=== PATIENT | female | born 1995 | race American Indian/Alaskan Native ===

== ENCOUNTER 2017-07-21 08:50 | Emergency (ER) | payer OTHER ==
[2017-07-21 09:29] LABS: Basophils % (Auto) 0.6 % (0.0-1.8); Hematocrit 34.7 % (30.3-42.9); Hemoglobin 11.2 gm/dl (10.1-14.3); Mean Corpuscular HGB Conc 32 % (30-34); Mean Corpuscular Hemoglobin 26 pg (28-32); Mean Corpuscular Volume 80 fl (79-97); Platelet Count 203 K/mm3 (140-440); Red Blood Count 4.32 M/mm3 (3.65-5.03); Red Cell Distribution Width 14.8 % (13.2-15.2)
[2017-07-21 09:41] LABS: Alanine Aminotransferase 11 units/L (7-56); Albumin 3.8 g/dL (3.9-5); Albumin/Globulin Ratio 1.1 %; Alkaline Phosphatase 86 units/L (35-129); Anion Gap 18 mmol/L; BUN/Creatinine Ratio 18; Blood Urea Nitrogen 9 mg/dL (7-17); Calcium 8.5 mg/dL (8.4-10.2); Carbon Dioxide 22 mmol/L (22-30); Chloride 99.4 mmol/L (98-107); Glucose 94 mg/dL (65-100); Lipase 34 units/L (13-60); Potassium 3.9 mmol/L (3.6-5.0); Sodium 135 mmol/L (137-145); Total Protein 7.2 g/dL (6.3-8.2)
[2017-07-21 10:00] LABS: Bacteria,Urine 1+ /HPF (Negative); Bilirubin,Urine NEG (Negative); Blood,Urine NEG (Negative); Ketones,Urine NEG (Negative); Leukocyte Esterase,Urine SM (Negative); Mucus,Urine FEW /HPF; Nitrite,Urine NEG (Negative); Protein,Urine <15 mg/dL mg/dL (Negative); Urobilinogen,Urine < 2.0 mg/dL (<2.0)
[2017-07-21] MEDS ORDERED: TYLENOL PO ONE (12:54)
--- NOTE | 2017-07-21 12:56 | Emergency Department Report ---
ED General Adult HPI - General Chief complaint: Back Pain/Injury Stated complaint: BACK PAIN Time Seen by Provider: 07/21/17 12:27 Source: patient, RN notes reviewed Mode of arrival: Wheelchair Limitations: No Limitations - History of Present Illness Initial comments: This is a 22-year-old female who was previously unknown to this provider. She is 1, para 0. Last menstrual period was May 12. Has her first appointment with an [facility] this coming week at [facility]. No history of abdominal surgeries. Presents to the ER with back pain and vaginal discharge. The back pain is paralumbar and in the sacroiliac joint. It increases with twisting. It does not radiate anywhere. There is no headache, neck pain, chest pain, shortness of breath, dysuria. Patient denies vaginal bleeding. Patient does a lot of heavy lifting for work. There is no bladder or bowel retention or incontinence. There is no saddle anesthesia. -: Gradual Location: back, genitals Radiation: non-radiation Quality: aching Consistency: intermittent Improves with: rest Worsens with: movement Associated Symptoms: denies: confusion, chest pain, cough, diaphoresis, fever/ chills, headaches, loss of appetite, malaise, nausea/vomiting, rash, shortness of breath, syncope, weakness - Related Data Previous Rx's Medication Instructions Recorded Last Taken Type Acetaminophen [Tylenol Arthritis] 650 mg PO Q6HR PRN #30 tablet.er 07/21/17 Unknown Rx Doxylamine Succinate/Vit B6 1 each PO QHS PRN #30 tablet. 07/21/17 Unknown Rx [Tati Brown 10-10 mg Tablet] Vit Calc,Iron,Folic 1 each PO QDAY #30 tablet 07/21/17 Unknown Rx [ Vitamins] Allergies Allergy/AdvReac Type Severity Reaction Status Date / Time No Known Allergies Allergy Unverified 07/21/17 08:54 ED Review of Systems ROS: Stated complaint: BACK PAIN Other details as noted in HPI Constitutional: denies: malaise Eyes: denies: vision change ENT: denies: epistaxis Respiratory: denies: cough Cardiovascular: denies: chest pain Gastrointestinal: denies: abdominal pain Genitourinary: discharge. denies: dysuria Musculoskeletal: back pain Neurological: denies: weakness ED Past Medical Hx - Past Medical History Previous Medical History?: No - Surgical History Past Surgical History?: No - Social History Smoking Status: Former Smoker Substance Use Type: None - Medications Home Medications: Home Medications Medication Instructions Recorded Confirmed Last Taken Type Acetaminophen [Tylenol Arthritis] 650 mg PO Q6HR PRN #30 tablet.er 07/21/17 Unknown Rx Doxylamine Succinate/Vit B6 1 each PO QHS PRN #30 tablet. 07/21/17 Unknown Rx [Diclegis Dr 10-10 mg Tablet] Vit Calc,Iron,Folic 1 each PO QDAY #30 tablet 07/21/17 Unknown Rx [ Vitamins] ED Physical Exam - General Limitations: No Limitations General appearance: alert, in no apparent distress - Head Head exam: Present: atraumatic, normocephalic - Eye Eye exam: Present: normal appearance, EOMI. Absent: nystagmus - ENT ENT exam: Present: normal exam, normal orophraynx, mucous membranes moist, normal external ear exam - Neck Neck exam: Present: normal inspection, full ROM. Absent: tenderness, meningismus - Respiratory Respiratory exam: Present: normal lung sounds bilaterally, chest wall tenderness. Absent: respiratory distress - Cardiovascular Cardiovascular Exam: Present: regular rate, normal rhythm, normal heart sounds. Absent: bradycardia, tachycardia, irregular rhythm, systolic murmur, diastolic murmur, rubs, gallop - GI/Abdominal GI/Abdominal exam: Present: soft, normal bowel sounds. Absent: distended, tenderness, guarding, rebound, rigid, pulsatile mass - External exam: Present: normal external exam Speculum exam: Present: normal speculum exam, cervical discharge. Absent: vaginal bleeding Bi-manual exam: Present: normal bi-manual exam, other (escorted by Hilda Ramirez). Absent: cervical motion tendernes, adnexal tenderness, adnexal mass - Extremities Exam Extremities exam: Present: normal inspection, full ROM, normal capillary refill. Absent: pedal edema, joint swelling, calf tenderness - Back Exam Back exam: Present: normal inspection, full ROM. Absent: tenderness, CVA tenderness (R), paraspinal tenderness, vertebral tenderness - Neurological Exam Neurological exam: Present: alert, oriented X3, normal gait, other (Extraocular movements intact. Tongue midline. No facial droop. Facial sensation intact to light touch in the V1, V2, V3 distribution bilaterally. 5 and 5 strength in 4 extremities.. Sensation is intact to light touch in 4 extremities.). Absent : motor sensory deficit - Psychiatric Psychiatric exam: Present: normal affect, normal mood - Skin Skin exam: Present: warm, dry, intact, normal color. Absent: rash ED Course Vital Signs 07/21/17 07/21/17 08:54 13:21 Temperature 98.4 F Pulse Rate 77 Respiratory 16 18 Rate Blood Pressure 109/56 O2 Sat by Pulse 100 Oximetry - Reevaluation(s) Reevaluation #1: 07/21/17 14:07 Differential diagnosis, including but not limited to: Mechanical back pain, , subchorionic hemorrhage, urinary tract infection, vaginitis Assessment and plan: 22-year-old female with probable mechanical back pain. The patient is afebrile with reassuring vital signs walks with a steady gait, has a normal neurologic examination, and has no clinical indication of epidural compression syndrome. Her abdomen is soft and benign, with no rebound, guarding or peritoneal signs. Her gynecologic exam is benign and nontender with the exception of vaginal discharge. A wet prep demonstrated trichomoniasis. The patient be medicated empirically to cover trichomoniasis, gonorrhea and chlamydia. Her urinalysis is appreciated, she does not endorse irritative or obstructive urinary symptoms, this may be a chlamydia cystitis. The patient was given specific instructions to follow-up for STD screening. A pelvic ultrasound is pending at this time. Vital signs have remained stable. Reevaluation #2: 07/21/17 14:45 Vital signs remained stable. Ultrasound confirms intrauterine with gestational sac, 5 weeks and 1 day. Reevaluation #3: 07/21/17 14:48 Case presented to [facility] physician, Dr. Mike, he has taken down patient's demographic information, and [facility] will contact the patient for outpatient [facility] follow-up next week. Patient given copy of laboratory studies and ultrasound report. Patient in no distress at this time, talking on a cellular phone with no active vomiting. She is Rh+. 07/21/17 14:49 ED Medical Decision Making - Lab Data Result diagrams: 07/21/17 09:03 07/21/17 09:03 Vital Signs 07/21/17 07/21/17 08:54 13:21 Temperature 98.4 F Pulse Rate 77 Respiratory 16 18 Rate Blood Pressure 109/56 O2 Sat by Pulse 100 Oximetry Lab Results 07/21/17 07/21/17 07/21/17 Range/Units 09:03 09:03 09:42 WBC 5.0 (4.5-11.0) K/mm3 RBC 4.32 (3.65-5.03) M/mm3 Hgb 11.2 (10.1-14.3) gm/dl Hct 34.7 (30.3-42.9) % MCV 80 (79-97) fl MCH 26 L (28-32) pg MCHC 32 (30-34) % RDW 14.8 (13.2-15.2) % Plt Count 203 (140-440) K/mm3 Lymph % (Auto) 35.0 (13.4-35.0) % Traverse % (Auto) 8.8 H (0.0-7.3) % Eos % (Auto) 3.0 (0.0-4.3) % Baso % (Auto) 0.6 (0.0-1.8) % Lymph # 1.7 (1.2-5.4) K/mm3 Traverse # 0.4 (0.0-0.8) K/mm3 Eos # 0.1 (0.0-0.4) K/mm3 Baso # 0.0 (0.0-0.1) K/mm3 Seg Neutrophils % 52.6 (40.0-70.0) % Seg Neutrophils # 2.6 (1.8-7.7) K/mm3 Sodium 135 L (137-145) mmol/L Potassium 3.9 (3.6-5.0) mmol/L Chloride 99.4 (98-107) mmol/L Carbon Dioxide 22 (22-30) mmol/L Anion Gap 18 mmol/L BUN 9 (7-17) mg/dL Creatinine 0.5 L (0.7-1.2) mg/dL Estimated GFR > 60 ml/min BUN/Creatinine Ratio 18 % Glucose 94 (65-100) mg/dL Calcium 8.5 (8.4-10.2) mg/dL Total Bilirubin 0.30 (0.1-1.2) mg/dL AST 12 (5-40) units/L ALT 11 (7-56) units/L Alkaline Phosphatase 86 (35-129) units/L Total Protein 7.2 (6.3-8.2) g/dL Albumin 3.8 L (3.9-5) g/dL Albumin/Globulin Ratio 1.1 % Lipase 34 (13-60) units/L HCG, Quant (0-4) mIU/mL Urine Color Yellow (Yellow) Urine Turbidity Clear (Clear) Urine pH 5.0 (5.0-7.0) Ur Specific Devol 1.014 (1.003-1.030) Urine Protein <15 mg/dl (Negative) mg/dL Urine Glucose (UA) Neg (Negative) mg/dL Urine Ketones Neg (Negative) mg/dL Urine Blood Neg (Negative) Urine Nitrite Neg (Negative) Urine Bilirubin Neg (Negative) Urine Urobilinogen < 2.0 (<2.0) mg/dL Ur Leukocyte Esterase Sm (Negative) Urine WBC (Auto) 15.0 H (0.0-6.0) /HPF Urine RBC (Auto) 2.0 (0.0-6.0) /HPF U Epithel Cells (Auto) 1.0 (0-13.0) /HPF Urine Bacteria (Auto) 1+ (Negative) /HPF Urine Mucus Few /HPF 07/21/17 Range/Units 13:13 WBC (4.5-11.0) K/mm3 RBC (3.65-5.03) M/mm3 Hgb (10.1-14.3) gm/dl Hct (30.3-42.9) % MCV (79-97) fl MCH (28-32) pg MCHC (30-34) % RDW (13.2-15.2) % Plt Count (140-440) K/mm3 Lymph % (Auto) (13.4-35.0) % Traverse % (Auto) (0.0-7.3) % Eos % (Auto) (0.0-4.3) % Baso % (Auto) (0.0-1.8) % Lymph # (1.2-5.4) K/mm3 Traverse # (0.0-0.8) K/mm3 Eos # (0.0-0.4) K/mm3 Baso # (0.0-0.1) K/mm3 Seg Neutrophils % (40.0-70.0) % Seg Neutrophils # (1.8-7.7) K/mm3 Sodium (137-145) mmol/L Potassium (3.6-5.0) mmol/L Chloride (98-107) mmol/L Carbon Dioxide (22-30) mmol/L Anion Gap mmol/L BUN (7-17) mg/dL Creatinine (0.7-1.2) mg/dL Estimated GFR ml/min BUN/Creatinine Ratio % Glucose (65-100) mg/dL Calcium (8.4-10.2) mg/dL Total Bilirubin (0.1-1.2) mg/dL AST (5-40) units/L ALT (7-56) units/L Alkaline Phosphatase (35-129) units/L Total Protein (6.3-8.2) g/dL Albumin (3.9-5) g/dL Albumin/Globulin Ratio % Lipase (13-60) units/L HCG, Quant 1743 H (0-4) mIU/mL Urine Color (Yellow) Urine Turbidity (Clear) Urine pH (5.0-7.0) Ur Specific Devol (1.003-1.030) Urine Protein (Negative) mg/dL Urine Glucose (UA) (Negative) mg/dL Urine Ketones (Negative) mg/dL Urine Blood (Negative) Urine Nitrite (Negative) Urine Bilirubin (Negative) Urine Urobilinogen (<2.0) mg/dL Ur Leukocyte Esterase (Negative) Urine WBC (Auto) (0.0-6.0) /HPF Urine RBC (Auto) (0.0-6.0) /HPF U Epithel Cells (Auto) (0-13.0) /HPF Urine Bacteria (Auto) (Negative) /HPF Urine Mucus /HPF - Radiology Data Radiology results: pending Critical care attestation.: If time is entered above; I have spent that time in minutes in the direct care of this critically ill patient, excluding procedure time. ED Disposition Clinical Impression: Trichomoniasis, Disposition: DC-01 TO HOME OR SELFCARE Is pt being admited?: No Does the pt Need Aspirin: No Condition: Stable Additional Instructions: Take the nausea medication and pain medication as directed. I recommend outpatient testing for sexually transmitted diseases, including hepatitis, syphilis and HIV. I also recommend that you abstain from sexual activity until you have completed her antibiotic therapy, a physician states that it is safe for you to resume sexual activity, and any partners that you have been sexually active with have been tested/treated/evaluated for sexual transmitted diseases. Please follow-up with physician within 3-5 days. I recommend that you return to the ER right away with worsening pain, migration of pain, intractable nausea/vomiting, inability tolerate liquid feeds. Cultures were sent today, was also be available next 3-5 days. Have a primary care doctor or process control specialist contact the medical records department to obtain culture results. Do not consume alcohol for the next 2 weeks at least, and preferably avoid alcohol consumption during the entire duration of . Prescriptions: Doxylamine Succinate/Vit B6 [Tati Brown 10-10 mg Tablet] 1 each PO QHS PRN #30 tablet. PRN Reason: Nausea Acetaminophen [Tylenol Arthritis] 650 mg PO Q6HR PRN #30 tablet.er PRN Reason: Pain Vit Calc,Iron,Folic [ Vitamins] 1 each PO QDAY #30 tablet Referrals: PRIMARY CAR[facility] [Primary Care Provider] - 3-5 Days [facility] [Provider Group] - 3-5 Days [facility] [Provider Group] - 3-5 Days [facility] [Provider Group] - 3-5 Days
[2017-07-21] MEDS ORDERED: ROCEPHIN IM ONE (13:53)
[2017-07-21] MEDS ORDERED: FLAGYL PO STA (13:53)
[2017-07-21] MEDS ORDERED: ZITHROMAX PO ONE (13:53)
[2017-07-21] MEDS ORDERED: XYLOCAINE 1% MPF 5 mL INFILTRATI ONE (13:53)
--- NOTE | 2017-07-21 14:40 | Ultrasound Report ---
OB ultrasound: Lower abdominal pain and . Endovaginal and transabdominal imaging demonstrates an anteverted uterus measuring 3.8 x 6.5 x 9.9 cm. There is a thick endometrium with an endometrial sac. The sac measurement is 4.1 mm in diameter. This is equivalent to a 5 week one day gestation. No gestational components identified within the sac. The right ovary measures 4.1 cm in diameter with a 1.6 cm simple cyst. The left ovary measures 3.7 cm and is echogenically normal. A minimal collection of free fluid noted in the cul-de-sac. Impressions: Gestational sac with no confirmed viability.
[2017-07-21 14:59] VITALS: BP 111/62
== END 2017-07-21 15:38 | disposition home or self-care (01) ==
LOC: ED 08:50
DX: O26.891 Other specified pregnancy related conditions, first trimester (principal); A59.9 Trichomoniasis, unspecified; Z3A.01 Less than 8 weeks gestation of pregnancy; Z87.891 Personal history of nicotine dependence
CPT/HCPCS: 36415; 76801; 76817; 80053; 81001; 81025; 83690; 84702; 85025; 86850; 86900; 86901; 87210; 87591; 96372; 99285; J0696

== ENCOUNTER 2017-09-02 09:21 | Emergency (ER) | payer OTHER ==
[2017-09-02 09:32] VITALS: BP 123/72
[2017-09-02 10:01] LABS: Bilirubin,Urine NEG (Negative); Blood,Urine NEG (Negative); Color,Urine Yellow (Yellow); Mucus,Urine FEW /HPF; Nitrite,Urine NEG (Negative); Protein,Urine <15 mg/dL mg/dL (Negative); RBC,Urine < 1.0 /HPF (0.0-6.0); Urobilinogen,Urine < 2.0 mg/dL (<2.0)
--- NOTE | 2017-09-02 11:55 | Emergency Department Report ---
ED Female HPI - General Chief complaint: Abdominal Pain Stated complaint: LOWER ABDOMINAL PAIN Time Seen by Provider: 09/02/17 10:31 Source: patient Mode of arrival: Ambulatory Limitations: No Limitations - History of Present Illness Initial comments: Patient is here for pelvic pain that started yesterday, as well as a vaginal discharge with odor that she has had for 2 weeks. Patient is 11 weeks . She states that she was diagnosed with Tricomonas a few weeks ago and was treated. She is still involved with the father of her baby and says that she may have told him about the infection after having intercourse with him again. He is here today as well to be checked. MD Complaint: vaginal discharge, pelvic pain, possible STD -: Gradual - Related Data Previous Rx's Medication Instructions Recorded Last Taken Type Acetaminophen [Tylenol Arthritis] 650 mg PO Q6HR PRN #30 tablet.er 07/21/17 Unknown Rx Doxylamine Succinate/Vit B6 1 each PO QHS PRN #30 tablet. 07/21/17 Unknown Rx [Tati Brown 10-10 mg Tablet] Vit Calc,Iron,Folic 1 each PO QDAY #30 tablet 07/21/17 Unknown Rx [ Vitamins] metroNIDAZOLE [Flagyl] 500 mg PO Q12HR #10 tab 09/02/17 Unknown Rx Allergies Allergy/AdvReac Type Severity Reaction Status Date / Time No Known Allergies Allergy Unverified 07/21/17 08:54 ED Review of Systems ROS: Stated complaint: LOWER ABDOMINAL PAIN Other details as noted in HPI Comment: All other systems reviewed and negative Constitutional: denies: chills, fever Eyes: denies: eye pain, eye discharge, vision change ENT: denies: ear pain, throat pain Respiratory: denies: cough, shortness of breath, wheezing Cardiovascular: denies: chest pain, palpitations Endocrine: no symptoms reported Gastrointestinal: denies: abdominal pain, nausea, diarrhea Genitourinary: denies: urgency, dysuria, discharge Musculoskeletal: denies: back pain, joint swelling, arthralgia Skin: denies: rash, lesions Neurological: denies: headache, weakness, paresthesias Psychiatric: denies: anxiety, depression Hematological/Lymphatic: denies: easy bleeding, easy bruising ED Past Medical Hx - Past Medical History Previous Medical History?: No - Surgical History Past Surgical History?: No - Social History Smoking Status: Never Smoker Substance Use Type: Non Opiate Pain - Medications Home Medications: Home Medications Medication Instructions Recorded Confirmed Last Taken Type Acetaminophen [Tylenol Arthritis] 650 mg PO Q6HR PRN #30 tablet.er 07/21/17 Unknown Rx Doxylamine Succinate/Vit B6 1 each PO QHS PRN #30 tablet. 07/21/17 Unknown Rx [Diclegis Dr 10-10 mg Tablet] Vit Calc,Iron,Folic 1 each PO QDAY #30 tablet 07/21/17 Unknown Rx [ Vitamins] metroNIDAZOLE [Flagyl] 500 mg PO Q12HR #10 tab 09/02/17 Unknown Rx ED Physical Exam - General Limitations: No Limitations General appearance: alert, in no apparent distress - Head Head exam: Present: atraumatic, normocephalic - Eye Eye exam: Present: normal appearance - ENT ENT exam: Present: mucous membranes moist - Neck Neck exam: Present: normal inspection - Respiratory Respiratory exam: Present: normal lung sounds bilaterally. Absent: respiratory distress - Cardiovascular Cardiovascular Exam: Present: regular rate, normal rhythm. Absent: systolic murmur, diastolic murmur, rubs, gallop - GI/Abdominal GI/Abdominal exam: Present: soft, tenderness (suprapubic), normal bowel sounds. Absent: guarding, rebound, rigid - Rectal Rectal exam: Present: deferred - Extremities Exam Extremities exam: Present: normal inspection - Back Exam Back exam: Present: normal inspection - Neurological Exam Neurological exam: Present: alert, oriented X3 - Psychiatric Psychiatric exam: Present: normal affect, normal mood - Skin Skin exam: Present: warm, dry, intact, normal color. Absent: rash ED Course Vital Signs 09/02/17 09:29 Temperature 98.3 F Pulse Rate 86 Respiratory 20 Rate Blood Pressure 123/72 O2 Sat by Pulse 99 Oximetry - Reevaluation(s) Reevaluation #1: 09/02/17 13:19 HCG Quant - 81,000 Critical Care Time: No Critical care attestation.: If time is entered above; I have spent that time in minutes in the direct care of this critically ill patient, excluding procedure time. ED Disposition Clinical Impression: Bacterial vaginosis Disposition: DC-01 TO HOME OR SELFCARE Is pt being admited?: No Does the pt Need Aspirin: No Condition: Stable Instructions: Bacterial Vaginosis (ED), Abdominal Pain (ED) Prescriptions: metroNIDAZOLE [Flagyl] 500 mg PO Q12HR #10 tab Referrals: MICHELLE BARBOZA [Other] - 3-5 Days Forms: STI Treatment and Prevention
== END 2017-09-02 14:40 | disposition home or self-care (01) ==
LOC: ED 09:21
DX: O26.891 Other specified pregnancy related conditions, first trimester (principal); R10.2 Pelvic and perineal pain; Z3A.11 11 weeks gestation of pregnancy
CPT/HCPCS: 36415; 81001; 84702; 99283